=== PATIENT | male | born 1945 | race African-American/Black ===

== ENCOUNTER 2016-08-25 13:48 | Emergency (ER) | payer BC, OTHER ==
[~2016-08-25 13:48] MED LIST: ABILIFY20 MG PO; ATEN50 PO; CARDURA1 MG PO; HUMULIN N1 ML SC; HYT2 PO; INSNOVN SC; KLOR-CON 1010 MEQ PO; LANTUS SC; LISINOPRIL40 MG PO; MULTIVITAMI1 PO; NORV10 PO; NOVOLOG SC; REMERON30 MG PO; TRAVATAN Z0.004 % OPH; ULTRAM50 PO; VIAGRA100 MG PO; VITC500 PO; XALAT OPH; ZOCOR40 PO; [UNRECOGNIZED DRUG - REMARK]
== END 2016-08-25 15:12 | disposition home or self-care (01) ==
LOC: ER 13:48
DX: S80.11XA Contusion of right lower leg, initial encounter (principal); M54.2 Cervicalgia; M54.5 Low back pain; M25.551 Pain in right hip; I10 Essential (primary) hypertension; Z85.46 Personal history of malignant neoplasm of prostate; Z79.899 Other long term (current) drug therapy; Z79.4 Long term (current) use of insulin; V89.9XXA Person injured in unspecified vehicle accident, initial encounter
CPT/HCPCS: 72050; 72100; 73522; 73590-RT; 99284